=== PATIENT | female | born 1950 | race Caucasian/White ===

== ENCOUNTER 2019-02-17 22:32 | Observation (INO) | payer MEDICARE, OTHER ==
[2019-02-17 22:59] LABS: BASOPHIL % 0.5 % (0.0-0.4); Basophil (Absolute #) 0.06 (0-0.4); Eosinophil % 1.3 % (0.00-5.0); Eosinophil (Absolute #) 0.15 (0-0.5); Granulocyte Absolute (ANC) 6.13 (1.4-6.9); Granulocytes % 54.9 % (36.0-66.0); Hematocrit 37.7 % (35-47); Hemoglobin 12.1 gm/dl (12.0-16.0); Lymphocyte (Absolute #) 3.84 (1.0-4.6); Lymphocytes % 34.3 % (24.0-44.0); Mean Cell Volume 95.4 fl (78-100); Mean Corpuscular Hemoglobin 30.6 pg (26-32); Mean Corpuscular Hgb Concent. 32.1 g/dl (32-36); Mean Platelet Volume 11.7 fl (6-9.5); Monocyte (Absolute #) 1.01 (0.0-1.3); Platelet Count 244 K/mm3 (150-450); Red Blood Count 3.95 M/mm3 (4.1-5.4); Red Cell Distribution Width 15.1 % (11.5-14.0); White Blood Count 11.2 K/mm3 (4.0-10.5)
[2019-02-17] MEDS ORDERED: Sodium Chloride 0.9% 1000 ML 1,000 ML IV SCH (23:00)
--- NOTE | 2019-02-17 23:01 | ERPHSYRPT ---
- History of Present Illness Time Seen by Provider: 02/17/19 22:45 Source: patient Physician History: PATIENT WITH A HISTORY OF RHEUMATOID ARTHRITIS ACCIDENTLY INGESTED 10 TABLETS OF MORPHINE IR 15MG AT 2130 INSTEAD OF METHOTREXATE. SHE INDUCED EMESIS X 5 EPISODES. DENIES ABDOMINAL PAIN, CHEST PAIN OR DIFFICULTY BREATHING. Timing/Duration: today Modifying Factors: Improves With: nothing Associated Symptoms: denies symptoms (OTHER THAN NAUSEA) Allergies/Adverse Reactions: codeine Allergy (Verified 02/17/19 22:57) hydroxychloroquine [From Plaquenil] Allergy (Verified 02/17/19 23:00) morphine Allergy (Verified 02/17/19 22:57) Home Medications: Abatacept/Maltose 250 MG [Orencia 250 MG Vial] 250 mg IV UD 02/17/19 [ History] Atorvastatin Calcium [Lipitor] 40 mg PO HS 02/17/19 [History] Baclofen 10 mg PO HS 02/17/19 [History] Ergocalciferol (Vitamin D2) [Vitamin D2] 1.25 mg PO WEEKLY 02/17/19 [History] Folic Acid 1 mg PO DAILY 02/17/19 [History] Lisinopril/Hydrochlorothiazide [Lisinopril-Hctz 10-12.5 mg Tab] 1 each PO BID [History] Metformin HCl 500 mg [Glucophage 500 MG] 500 mg PO DAILY 02/17/19 [History ] Methotrexate Sodium 2.5 mg [Trexall 2.5 mg] 2.5 mg PO WEEKLY 02/17/19 [ History] Sulfasalazine 500 mg [Azulfidine 500 mg] 500 mg PO BID 02/17/19 [History] - Review of Systems Constitutional: No Fever, No Chills Eyes: No Symptoms Ears, Nose, & Throat: No Symptoms Respiratory: No Cough, No Dyspnea Cardiac: No Chest Pain, No Edema, No Syncope Abdominal/Gastrointestinal: No Symptoms, No Abdominal Pain, No Nausea, No Vomiting, No Diarrhea Genitourinary Symptoms: No Symptoms, No Dysuria Musculoskeletal: No Symptoms, No Back Pain, No Neck Pain Skin: No Rash Neurological: No Dizziness, No Focal Weakness, No Sensory Changes Psychological: No Symptoms Endocrine: No Symptoms All Other Systems: Reviewed and Negative - Past Medical History Neurological History: No Pertinent History Cardiac History: High Cholesterol, Hypertension Respiratory History: No Pertinent History Endocrine Medical History: Diabetes Type II Musculoskeletal History: Fibromyalgia, Rheumatoid Arthritis - Nursing Vital Signs Nursing Vital Signs: Initial Vital Signs Temperature 97.5 F 02/17/19 22:47 Pulse Rate 95 H 02/17/19 22:47 Respiratory Rate 20 02/17/19 22:47 Blood Pressure 125/63 02/17/19 22:47 O2 Sat by Pulse Oximetry 88 L 02/17/19 22:47 Pain Scale Pain Intensity 10 - Physical Exam General Appearance: no apparent distress, alert Eye Exam: PERRL/EOMI, eyes nml inspection Ears, Nose, Throat Exam: normal ENT inspection, TMs normal, pharynx normal, moist mucous membranes Neck Exam: normal inspection, non-tender, supple, full range of motion Respiratory Exam: normal breath sounds, lungs clear, No respiratory distress Cardiovascular Exam: regular rate/rhythm, normal heart sounds, normal peripheral pulses Gastrointestinal/Abdomen Exam: soft, normal bowel sounds, No tenderness, No mass Back Exam: normal inspection, normal range of motion, No CVA tenderness, No vertebral tenderness Extremity Exam: normal inspection, normal range of motion, pelvis stable Neurologic Exam: alert, oriented x 3, cooperative, normal mood/affect, nml cerebellar function, nml station & gait, sensation nml, No motor deficits Skin Exam: normal color, warm, dry, No rash Lymphatic Exam: No adenopathy SpO2 Interpretation: hypoxic SpO2: 88 O2 Delivery: Room Air Ordered Tests: Active Orders 24 hr Category Date Time Status [place] [employer] Operator STAT Care 02/17/19 22:52 Active EKG-ER Only STAT Care 02/18/19 00:22 Active Oxygen-ED Only Nasal Cannula 2 lpm Care 02/17/19 22:50 Active ACETAMINOPHEN Stat Lab 02/17/19 22:55 Completed ARTERIAL BLOOD GASES Stat Lab 02/18/19 00:30 Completed BMP Stat Lab 02/18/19 00:00 Completed CBC W DIFF Stat Lab 02/17/19 22:55 Completed Hepatic Function Panel Stat Lab 02/17/19 22:55 Completed MAGNESIUM Stat Lab 02/18/19 00:00 Completed SALICYLATE Stat Lab 02/17/19 22:55 Completed Urine Triage Profile Stat Lab 02/17/19 23:42 Completed Medication Summary Generic Name Dose Route Start Last Admin Trade Name Freq PRN Reason Stop Dose Admin Sodium Chloride 1,000 mls @ 50 mls/hr 02/17/19 23:00 02/17/19 23:10 Sodium Chloride 0.9% 1000 Ml IV 03/19/19 22:59 50 mls/hr .Q20H AIDA Administration Lab/Rad Data: Laboratory Result Diagrams 02/17/19 22:55 02/18/19 00:00 Laboratory Results 02/18/19 02/18/19 02/18/19 Range/Units 00:30 00:00 00:00 WBC (4.0-10.5) K/mm3 RBC (4.1-5.4) M/mm3 Hgb (12.0-16.0) gm/dl Hct (35-47) % MCV (78-100) fl MCH (26-32) pg MCHC (32-36) g/dl RDW (11.5-14.0) % Plt Count (150-450) K/mm3 MPV (6-9.5) fl Gran % (36.0-66.0) % Eos # (Auto) (0-0.5) Absolute Lymphs (auto) (1.0-4.6) Absolute Monos (auto) (0.0-1.3) Lymphocytes % (24.0-44.0) % Monocytes % (0.0-12.0) % Eosinophils % (0.00-5.0) % Basophils % (0.0-0.4) % Absolute Granulocytes (1.4-6.9) Basophils # (0-0.4) Puncture Site LEFT RADIAL pCO2 44 (35-45) mmHg pO2 83 (75-100) mmHg Base Excess -0.1 (-2.0-2.0) O2 Saturation 94.5 (94-100) g/dF ABG pH 7.37 (7.35-7.45) ABG HCO3 25.4 (22-28) ABG O2 Sat (Measured) 96.6 (95-100) % Cameron Test YES A-a Gradient 47 a/A Ratio 0.64 Hemoglobin 11.0 Carboxyhemoglobin 1.8 (0.0-6.9) % THgb Methemoglobin 0.5 L (1.4-1.5) % Temperature 37.0 C POC O2 Flow Rate 26 % Sodium 139 (137-145) mmol/L Potassium 3.3 L 3.7 (3.5-5.1) mmol/L Chloride 105 (98-107) mmol/L Carbon Dioxide 24 (22-30) mmol/L Anion Gap 13.9 (5-15) MEQ/L BUN 24 H (7-17) mg/dL Creatinine 0.62 (0.52-1.04) mg/dL Estimated GFR > 60.0 ML/MIN Glucose 153 H (74-106) mg/dL Calcium 10.0 (8.4-10.2) mg/dL Magnesium 1.7 (1.6-2.3) mg/dL Total Bilirubin (0.2-1.3) mg/dL Direct Bilirubin (0.0-0.4) mg/dL AST (14-36) U/L ALT (0-35) U/L Alkaline Phosphatase (38-126) U/L Serum Total Protein (6.3-8.2) g/dL Albumin (3.5-5.0) g/dL Salicylates (2-20) mg/dL Urine Opiates Level (NEGATIVE) Ur Methadone (NEGATIVE) Acetaminophen (10-30) ug/ml Urine Barbiturates (NEGATIVE) Ur Phencyclidine (PCP) (NEGATIVE) Urine Amphetamine (NEGATIVE) U Benzodiazepine Level (NEGATIVE) Urine Cocaine (NEGATIVE) Urine Marijuana (THC) (NEGATIVE) 02/17/19 02/17/19 02/17/19 Range/Units 23:42 22:55 22:55 WBC 11.2 H (4.0-10.5) K/mm3 RBC 3.95 L (4.1-5.4) M/mm3 Hgb 12.1 (12.0-16.0) gm/dl Hct 37.7 (35-47) % MCV 95.4 (78-100) fl MCH 30.6 (26-32) pg MCHC 32.1 (32-36) g/dl RDW 15.1 H (11.5-14.0) % Plt Count 244 (150-450) K/mm3 MPV 11.7 H (6-9.5) fl Gran % 54.9 (36.0-66.0) % Eos # (Auto) 0.15 (0-0.5) Absolute Lymphs (auto) 3.84 (1.0-4.6) Absolute Monos (auto) 1.01 (0.0-1.3) Lymphocytes % 34.3 (24.0-44.0) % Monocytes % 9.0 (0.0-12.0) % Eosinophils % 1.3 (0.00-5.0) % Basophils % 0.5 (0.0-0.4) % Absolute Granulocytes 6.13 (1.4-6.9) Basophils # 0.06 (0-0.4) Puncture Site pCO2 (35-45) mmHg pO2 (75-100) mmHg Base Excess (-2.0-2.0) O2 Saturation (94-100) g/dF ABG pH (7.35-7.45) ABG HCO3 (22-28) ABG O2 Sat (Measured) (95-100) % Cameron Test A-a Gradient a/A Ratio Hemoglobin Carboxyhemoglobin (0.0-6.9) % THgb Methemoglobin (1.4-1.5) % Temperature C POC O2 Flow Rate % Sodium (137-145) mmol/L Potassium (3.5-5.1) mmol/L Chloride (98-107) mmol/L Carbon Dioxide (22-30) mmol/L Anion Gap (5-15) MEQ/L BUN (7-17) mg/dL Creatinine (0.52-1.04) mg/dL Estimated GFR ML/MIN Glucose (74-106) mg/dL Calcium (8.4-10.2) mg/dL Magnesium (1.6-2.3) mg/dL Total Bilirubin 0.30 (0.2-1.3) mg/dL Direct Bilirubin 0 (0.0-0.4) mg/dL AST 45 H (14-36) U/L ALT 21 (0-35) U/L Alkaline Phosphatase 71 (38-126) U/L Serum Total Protein 6.9 (6.3-8.2) g/dL Albumin 4.1 (3.5-5.0) g/dL Salicylates < 1.0 L (2-20) mg/dL Urine Opiates Level POSITIVE (NEGATIVE) Ur Methadone NEGATIVE (NEGATIVE) Acetaminophen < 10 L (10-30) ug/ml Urine Barbiturates NEGATIVE (NEGATIVE) Ur Phencyclidine (PCP) NEGATIVE (NEGATIVE) Urine Amphetamine NEGATIVE (NEGATIVE) U Benzodiazepine Level NEGATIVE (NEGATIVE) Urine Cocaine NEGATIVE (NEGATIVE) Urine Marijuana (THC) NEGATIVE (NEGATIVE) - Progress Progress Note: 02/18/19 01:[address] ONTO OXYGEN 2 L PULSE OX 97% 02/18/19 01:40, PATIENT HAS REMAINED ALERT EASILY AROUSABLE THOUGHOUT ER VISIT Discussed with : Kareem (DISCUSSED WITH DR SOTOMAYOR FOR OBSERVATION AT 0125) - Departure Departure Disposition: Observation Clinical Impression: OPIATE INGESTION, ACCIDENTAL OVERDOSE Condition: Stable Critical Care Time: No Referrals: KATI NAJERA MD [Primary Care Provider] -
[2019-02-17 23:03] LABS: ALBUMIN 4.1 g/dL (3.5-5.0); ALKALINE PHOSPHATASE 71 U/L (38-126); SGOT/AST 45 U/L (14-36); SGPT/ALT 21 U/L (0-35); Total Protein 6.9 g/dL (6.3-8.2)
[2019-02-17 23:04] LABS: ACETAMINOPHEN < 10 ug/ml (10-30); Direct Bilirubin 0 mg/dL (0.0-0.4); SALICYLATE < 1.0 mg/dL (2-20)
[2019-02-18 00:02] LABS: Amphetamine,Urine NEGATIVE (NEGATIVE); Barbiturate,Urine NEGATIVE (NEGATIVE); Benzodiazepine,Urine NEGATIVE (NEGATIVE); Cocaine,Urine NEGATIVE (NEGATIVE); Methadone,Urine NEGATIVE (NEGATIVE); Opiate,Urine POSITIVE (NEGATIVE); PCP,Urine NEGATIVE (NEGATIVE); THC,Urine NEGATIVE (NEGATIVE)
[2019-02-18 00:35] LABS: ANION GAP 13.9 MEQ/L (5-15); BLOOD UREA NITROGEN 24 mg/dL (7-17); CHLORIDE 105 mmol/L (98-107); Carbon Dioxide 24 mmol/L (22-30); Creatinine 1 0.62 mg/dL (0.52-1.04); Glucose 153 mg/dL (74-106); Potassium 3.7 mmol/L (3.5-5.1); SODIUM 139 mmol/L (137-145)
[2019-02-18 00:39] LABS: A-aADO2 47; ABG POTASSIUM 3.3 (3.5-5.1); ABG SITE LEFT RADIAL; ALLEN TEST OK? YES; ARTERIAL BLD GAS O2 SATURATION 96.6 % (95-100); ARTERIAL BLOOD GAS BASE EXCESS -0.1 (-2.0-2.0); ARTERIAL BLOOD GAS FIO2 26 %; ARTERIAL BLOOD GAS PCO2 44 mmHg (35-45); ARTERIAL BLOOD GAS PO2 83 mmHg (75-100); ARTERIAL BLOOD GAS pH 7.37 (7.35-7.45); CARBOXYHEMOGLOBIN 1.8 % THgb (0.0-6.9); HCO3- 25.4 (22-28); HGB O2 SAT 94.5 g/dF (94-100); Methhemoglobin 0.5 % (1.4-1.5); paO2 pAO1 0.64
[2019-02-18] MEDS ORDERED: Zofran 4 MG/2 ML VIAL IV PRN (01:41)
[2019-02-18] MEDS ORDERED: NARCAN 2 MG/2 ML IV PRN (01:45)
[2019-02-18] MEDS ORDERED: NovoLOG Insulin SQ PRN (03:26)
[2019-02-18] MEDS ORDERED: Glucophage 500 MG PO SCH (08:00)
[2019-02-18] MEDS ORDERED: TYLENOL 325 MG PO PRN (08:55)
[2019-02-18] MEDS ORDERED: Zestril 10 MG PO SCH (10:00)
[2019-02-18] MEDS ORDERED: FOLATE 1 MG PO SCH (10:00)
[2019-02-18 11:17] VITALS: BP 112/59; PULSE 56; O2SAT 98
--- NOTE | 2019-02-18 13:19 | PCM.SSS ---
History of Present Illness - Chief Complaint Chief Complaint: Accidental Overdose of morphine History of Present Illness: is a 68 year old female came to ER with c/o nausea, vomiting and abdominal pain. She took 10 tablets of 10 mg morphine IR instead of methotraxate she takes for her rheumatoid arthritis. - Review of Systems Constitutional: No Fever, No Chills Eyes: No Symptoms Ears, Nose, & Throat: No Symptoms Respiratory: No Cough, No Short Of Breath Cardiac: No Chest Pain, No Edema, No Syncope Abdominal/Gastrointestinal: No Abdominal Pain, No Nausea, No Vomiting, No Diarrhea Genitourinary Symptoms: No Dysuria Musculoskeletal: No Back Pain, No Neck Pain Skin: No Rash Neurological: No Dizziness, No Focal Weakness, No Sensory Changes Psychological: No Symptoms Endocrine: No Symptoms Hematologic/Lymphatic: No Symptoms Immunological/Allergic: No Symptoms Medications & Allergies Home Medications: Home Medication List Abatacept/Maltose 250 MG [Orencia 250 MG Vial] 250 mg IV UD 02/17/19 [ History Confirmed 02/17/19] Atorvastatin Calcium [Lipitor] 40 mg PO HS 02/17/19 [History Confirmed 02/17/19] Baclofen 10 mg PO HS 02/17/19 [History Confirmed 02/17/19] Ergocalciferol (Vitamin D2) [Vitamin D2] 1.25 mg PO WEEKLY 02/17/19 [History Confirmed 02/17/19] Folic Acid 2 mg PO DAILY 02/17/19 [History Confirmed 02/18/19] Metformin HCl 500 mg [Glucophage 500 MG] 500 mg PO DAILY 02/17/19 [ History Confirmed 02/17/19] Methotrexate Sodium 2.5 mg [Trexall 2.5 mg] 10 tablet PO WEEKLY 02/17/19 [ History Confirmed 02/18/19] Sulfasalazine 500 mg [Azulfidine 500 mg] 1,500 mg PO BID 02/17/19 [ History Confirmed 02/18/19] Lisinopril/Hydrochlorothiazide [Lisinopril-Hctz 20-12.5 mg Tab] 0.5 tablet PO BID 02/18/19 [History Confirmed 02/18/19] Ondansetron ODT 4 MG [Zofran Odt 4 mg] 4 mg PO Q6H PRN PRN #10 tab.rapdis 02/18/19 [Rx] Allergies/Adverse Reactions: Allergies Allergy/AdvReac Type Severity Reaction Status Date / Time codeine Allergy Verified 02/17/19 22:57 hydroxychloroquine Allergy Verified 02/17/19 23:00 [From Plaquenil] morphine Allergy Verified 02/17/19 22:57 - Past Medical History Past Medical History: Yes Neurological History: No Pertinent History ENT History: No Pertinent History Cardiac History: High Cholesterol, Hypertension Respiratory History: No Pertinent History Endocrine Medical History: Diabetes Type II Musculoskelatal History: Fibromyalgia, Osteoarthritis, Rheumatoid Arthritis GI Medical History: Diverticulitis, Diverticulosis History: No Pertinent History Pyscho-Social History: No Pertinent History Reproductive Disorders: No Pertinent History - Female History Hx Last Menstrual Period: Hysterectomy Are you now?: No - Past Surgical History Past Surgical History: Yes Neuro Surgical History: No Pertinent History Cardiac History: No Pertinent History Respiratory Surgery: No Pertinent History GI Surgical History: Cholecystectomy Genitourinary Surgical Hx: No Pertinent History Musculskeletal Surgical Hx: No Pertinent History Female Surgical History: Hysterectomy - Social History Smoking Status: Never smoker Exposure to second hand smoke: No Alcohol: None Drug Use: none - Physical Exam Vital Signs: Vital Signs - 24 hr Temp Pulse Resp BP Pulse Ox 02/18/19 11:16 98.4 F 56 L 15 112/59 98 02/18/19 08:00 64 02/18/19 07:26 98.0 F 64 18 111/53 94 L 02/18/19 04:00 97.8 F 66 15 96/44 92 L 02/18/19 02:22 98.2 F 677 H 20 123/57 98 02/18/19 01:41 88 L 02/18/19 00:40 97.9 F 67 14 114/62 99 02/17/19 23:50 70 114/62 99 02/17/19 23:36 67 17 133/80 98 02/17/19 22:47 97.5 F 95 H 20 125/63 88 L Oxygen-Last 24 hours O2 Percentage 2 Liters = 28% O2 Percentage 2 Liters = 28% O2 Percentage 2 Liters = 28% O2 Percentage 2 Liters = 28% O2 Percentage 2 Liters = 28% General Appearance: no apparent distress, alert Neurologic Exam: alert, oriented x 3, cooperative, normal mood/affect, nml cerebellar function, nml station & gait, sensation nml, No motor deficits Eye Exam: PERRL/EOMI, eyes nml inspection Ears, Nose, Throat Exam: normal ENT inspection, TMs normal, pharynx normal, moist mucous membranes Neck Exam: normal inspection, non-tender, supple, full range of motion Respiratory Exam: normal breath sounds, lungs clear, No respiratory distress Cardiovascular Exam: regular rate/rhythm, normal heart sounds, normal peripheral pulses Gastrointestinal/Abdomen Exam: soft, normal bowel sounds, No tenderness, No mass Back Exam: normal inspection, normal range of motion, No CVA tenderness, No vertebral tenderness Extremity Exam: normal inspection, normal range of motion, pelvis stable Skin Exam: normal color, warm, dry, No rash Lymphatic Exam: No adenopathy Results - Labs Lab/Micro Results: Accuchecks Date 02/18/19 Date 02/18/19 Time 11:30 Time 07:30 Accucheck Value: 138 Accucheck Value: 130 Lab Results-Last 24 Hours 02/17/19 02/17/19 02/17/19 Range/Units 22:55 22:55 23:42 WBC 11.2 H (4.0-10.5) K/mm3 RBC 3.95 L (4.1-5.4) M/mm3 Hgb 12.1 (12.0-16.0) gm/dl Hct 37.7 (35-47) % MCV 95.4 (78-100) fl MCH 30.6 (26-32) pg MCHC 32.1 (32-36) g/dl RDW 15.1 H (11.5-14.0) % Plt Count 244 (150-450) K/mm3 MPV 11.7 H (6-9.5) fl Gran % 54.9 (36.0-66.0) % Eos # (Auto) 0.15 (0-0.5) Absolute Lymphs (auto) 3.84 (1.0-4.6) Absolute Monos (auto) 1.01 (0.0-1.3) Lymphocytes % 34.3 (24.0-44.0) % Monocytes % 9.0 (0.0-12.0) % Eosinophils % 1.3 (0.00-5.0) % Basophils % 0.5 (0.0-0.4) % Absolute Granulocytes 6.13 (1.4-6.9) Basophils # 0.06 (0-0.4) Puncture Site pCO2 (35-45) mmHg pO2 (75-100) mmHg Base Excess (-2.0-2.0) O2 Saturation (94-100) g/dF ABG pH (7.35-7.45) ABG HCO3 (22-28) ABG O2 Sat (Measured) (95-100) % Cameron Test A-a Gradient a/A Ratio Hemoglobin Carboxyhemoglobin (0.0-6.9) % THgb Methemoglobin (1.4-1.5) % Temperature C POC O2 Flow Rate % Sodium (137-145) mmol/L Potassium (3.5-5.1) mmol/L Chloride (98-107) mmol/L Carbon Dioxide (22-30) mmol/L Anion Gap (5-15) MEQ/L BUN (7-17) mg/dL Creatinine (0.52-1.04) mg/dL Estimated GFR ML/MIN Glucose (74-106) mg/dL Hemoglobin A1c (4.5-6.0) % Calcium (8.4-10.2) mg/dL Magnesium (1.6-2.3) mg/dL Total Bilirubin 0.30 (0.2-1.3) mg/dL Direct Bilirubin 0 (0.0-0.4) mg/dL AST 45 H (14-36) U/L ALT 21 (0-35) U/L Alkaline Phosphatase 71 (38-126) U/L Serum Total Protein 6.9 (6.3-8.2) g/dL Albumin 4.1 (3.5-5.0) g/dL Salicylates < 1.0 L (2-20) mg/dL Urine Opiates Level POSITIVE (NEGATIVE) Ur Methadone NEGATIVE (NEGATIVE) Acetaminophen < 10 L (10-30) ug/ml Urine Barbiturates NEGATIVE (NEGATIVE) Ur Phencyclidine (PCP) NEGATIVE (NEGATIVE) Urine Amphetamine NEGATIVE (NEGATIVE) U Benzodiazepine Level NEGATIVE (NEGATIVE) Urine Cocaine NEGATIVE (NEGATIVE) Urine Marijuana (THC) NEGATIVE (NEGATIVE) 02/18/19 02/18/19 02/18/19 Range/Units 00:00 00:00 00:30 WBC (4.0-10.5) K/mm3 RBC (4.1-5.4) M/mm3 Hgb (12.0-16.0) gm/dl Hct (35-47) % MCV (78-100) fl MCH (26-32) pg MCHC (32-36) g/dl RDW (11.5-14.0) % Plt Count (150-450) K/mm3 MPV (6-9.5) fl Gran % (36.0-66.0) % Eos # (Auto) (0-0.5) Absolute Lymphs (auto) (1.0-4.6) Absolute Monos (auto) (0.0-1.3) Lymphocytes % (24.0-44.0) % Monocytes % (0.0-12.0) % Eosinophils % (0.00-5.0) % Basophils % (0.0-0.4) % Absolute Granulocytes (1.4-6.9) Basophils # (0-0.4) Puncture Site LEFT RADIAL pCO2 44 (35-45) mmHg pO2 83 (75-100) mmHg Base Excess -0.1 (-2.0-2.0) O2 Saturation 94.5 (94-100) g/dF ABG pH 7.37 (7.35-7.45) ABG HCO3 25.4 (22-28) ABG O2 Sat (Measured) 96.6 (95-100) % Cameron Test YES A-a Gradient 47 a/A Ratio 0.64 Hemoglobin 11.0 Carboxyhemoglobin 1.8 (0.0-6.9) % THgb Methemoglobin 0.5 L (1.4-1.5) % Temperature 37.0 C POC O2 Flow Rate 26 % Sodium 139 (137-145) mmol/L Potassium 3.7 3.3 L (3.5-5.1) mmol/L Chloride 105 (98-107) mmol/L Carbon Dioxide 24 (22-30) mmol/L Anion Gap 13.9 (5-15) MEQ/L BUN 24 H (7-17) mg/dL Creatinine 0.62 (0.52-1.04) mg/dL Estimated GFR > 60.0 ML/MIN Glucose 153 H (74-106) mg/dL Hemoglobin A1c (4.5-6.0) % Calcium 10.0 (8.4-10.2) mg/dL Magnesium 1.7 (1.6-2.3) mg/dL Total Bilirubin (0.2-1.3) mg/dL Direct Bilirubin (0.0-0.4) mg/dL AST (14-36) U/L ALT (0-35) U/L Alkaline Phosphatase (38-126) U/L Serum Total Protein (6.3-8.2) g/dL Albumin (3.5-5.0) g/dL Salicylates (2-20) mg/dL Urine Opiates Level (NEGATIVE) Ur Methadone (NEGATIVE) Acetaminophen (10-30) ug/ml Urine Barbiturates (NEGATIVE) Ur Phencyclidine (PCP) (NEGATIVE) Urine Amphetamine (NEGATIVE) U Benzodiazepine Level (NEGATIVE) Urine Cocaine (NEGATIVE) Urine Marijuana (THC) (NEGATIVE) 02/18/19 Range/Units 08:00 WBC (4.0-10.5) K/mm3 RBC (4.1-5.4) M/mm3 Hgb (12.0-16.0) gm/dl Hct (35-47) % MCV (78-100) fl MCH (26-32) pg MCHC (32-36) g/dl RDW (11.5-14.0) % Plt Count (150-450) K/mm3 MPV (6-9.5) fl Gran % (36.0-66.0) % Eos # (Auto) (0-0.5) Absolute Lymphs (auto) (1.0-4.6) Absolute Monos (auto) (0.0-1.3) Lymphocytes % (24.0-44.0) % Monocytes % (0.0-12.0) % Eosinophils % (0.00-5.0) % Basophils % (0.0-0.4) % Absolute Granulocytes (1.4-6.9) Basophils # (0-0.4) Puncture Site pCO2 (35-45) mmHg pO2 (75-100) mmHg Base Excess (-2.0-2.0) O2 Saturation (94-100) g/dF ABG pH (7.35-7.45) ABG HCO3 (22-28) ABG O2 Sat (Measured) (95-100) % Cameron Test A-a Gradient a/A Ratio Hemoglobin Carboxyhemoglobin (0.0-6.9) % THgb Methemoglobin (1.4-1.5) % Temperature C POC O2 Flow Rate % Sodium (137-145) mmol/L Potassium (3.5-5.1) mmol/L Chloride (98-107) mmol/L Carbon Dioxide (22-30) mmol/L Anion Gap (5-15) MEQ/L BUN (7-17) mg/dL Creatinine (0.52-1.04) mg/dL Estimated GFR ML/MIN Glucose (74-106) mg/dL Hemoglobin A1c 5.21 (4.5-6.0) % Calcium (8.4-10.2) mg/dL Magnesium (1.6-2.3) mg/dL Total Bilirubin (0.2-1.3) mg/dL Direct Bilirubin (0.0-0.4) mg/dL AST (14-36) U/L ALT (0-35) U/L Alkaline Phosphatase (38-126) U/L Serum Total Protein (6.3-8.2) g/dL Albumin (3.5-5.0) g/dL Salicylates (2-20) mg/dL Urine Opiates Level (NEGATIVE) Ur Methadone (NEGATIVE) Acetaminophen (10-30) ug/ml Urine Barbiturates (NEGATIVE) Ur Phencyclidine (PCP) (NEGATIVE) Urine Amphetamine (NEGATIVE) U Benzodiazepine Level (NEGATIVE) Urine Cocaine (NEGATIVE) Urine Marijuana (THC) (NEGATIVE) Accuchecks Date 02/18/19 Date 02/18/19 Time 11:30 Time 07:30 Accucheck Value: 138 Accucheck Value: 130 Assessment/Plan (1) Accidental overdose Current Visit: Yes Status: Acute Assessment & Plan: doing ok, will discharge her home Code(s): T50.901A - POISONING BY UNSP DRUG/MEDS/BIOL SUBST, ACCIDENTAL, INIT Hospital Summary - Hospital Course Hospital Course: Chief Complaint Diagnosis Accidental Overdose of morphine Allergies Allergy/AdvReac Type Severity Reaction Status Date / Time codeine Allergy Verified 02/17/19 22:57 hydroxychloroquine Allergy Verified 02/17/19 23:00 [From Plaquenil] morphine Allergy Verified 02/17/19 22:57 Vital Signs (Last 24 hours) Temp Pulse Resp BP Pulse Ox 02/18/19 11:16 98.4 F 56 L 15 112/59 98 02/18/19 08:00 64 02/18/19 07:26 98.0 F 64 18 111/53 94 L 02/18/19 04:00 97.8 F 66 15 96/44 92 L 02/18/19 02:22 98.2 F 677 H 20 123/57 98 02/18/19 01:41 88 L 02/18/19 00:40 97.9 F 67 14 114/62 99 02/17/19 23:50 70 114/62 99 02/17/19 23:36 67 17 133/80 98 02/17/19 22:47 97.5 F 95 H 20 125/63 88 L Home Medications Medication Instructions Recorded Confirmed Last Taken Type Abatacept/Maltose 250 MG 250 mg IV UD 02/17/19 02/17/19 Unknown History [Orencia 250 MG Vial] Atorvastatin Calcium [Lipitor] 40 mg PO HS 02/17/19 02/17/19 02/17/19 History Baclofen 10 mg PO HS 02/17/19 02/17/19 02/17/19 History Ergocalciferol (Vitamin D2) 1.25 mg PO WEEKLY 02/17/19 02/17/19 Unknown History [Vitamin D2] Folic Acid 2 mg PO DAILY 02/17/19 02/18/19 02/17/19 History Metformin HCl 500 mg 500 mg PO DAILY 02/17/19 02/17/19 02/17/19 History [Glucophage 500 MG] Methotrexate Sodium 2.5 mg 10 tablet PO WEEKLY 02/17/19 02/18/19 02/10/19 History [Trexall 2.5 mg] Sulfasalazine 500 mg 1,500 mg PO BID 02/17/19 02/18/19 02/17/19 History [Azulfidine 500 mg] Lisinopril/Hydrochlorothiazide 0.5 tablet PO BID 02/18/19 02/18/19 02/17/19 History [Lisinopril-Hctz 20-12.5 mg Tab] Current Medications Generic Name Dose Route Start Last Admin Trade Name Freq PRN Reason Stop Dose Admin Acetaminophen 650 mg 02/18/19 08:55 02/18/19 09:02 Tylenol 325 Mg PO 03/20/19 08:54 650 mg Q4H PRN PRN Administration PAIN AND/OR FEVER Folic Acid 1 mg 02/18/19 10:00 02/18/19 10:49 Folate 1 Mg PO 03/20/19 09:59 Not Given DAILY AIDA Sodium Chloride 1,000 mls @ 50 mls/hr 02/17/19 23:00 02/17/19 23:10 Sodium Chloride 0.9% 1000 Ml IV 03/19/19 22:59 50 mls/hr .Q20H AIDA Administration Insulin Aspart 0 unit 02/18/19 03:26 Novolog Insulin SQ 03/20/19 03:25 UD PRN HYPERGLYCEMIA Lisinopril 10 mg 02/18/19 10:00 02/18/19 10:49 Zestril 10 Mg PO 03/20/19 09:59 Not Given BID AIDA Metformin HCl 500 mg 02/18/19 08:00 02/18/19 08:48 Glucophage 500 Mg PO 03/20/19 07:59 500 mg BREAKFAST AIDA Administration Naloxone HCl 2 mg 02/18/19 01:45 Narcan 2 Mg/2 Ml IV 03/20/19 01:44 Q4HPRN PRN LETHARGY Ondansetron HCl 4 mg 02/18/19 01:41 02/18/19 08:47 Zofran 4 Mg/2 Ml Vial IV 03/20/19 01:40 4 mg Q6H PRN PRN Administration NAUSEA/VOMITING Intake & Output (Last 24 hours) 02/16/19 02/17/19 02/18/19 02/19/19 11:59 11:59 11:59 11:59 Intake Total 125 Output Total 300 Balance -175 Weight 94 kg Laboratory Results (Last 24 hours) 02/18/19 02/18/19 02/18/19 08:00 00:30 00:00 WBC RBC Hgb Hct MCV MCH MCHC RDW Plt Count MPV Gran % Eos # (Auto) Absolute Lymphs (auto) Absolute Monos (auto) Lymphocytes % Monocytes % Eosinophils % Basophils % Absolute Granulocytes Basophils # Puncture Site LEFT RADIAL pCO2 44 pO2 83 Base Excess -0.1 O2 Saturation 94.5 ABG pH 7.37 ABG HCO3 25.4 ABG O2 Sat (Measured) 96.6 Cameron Test YES A-a Gradient 47 a/A Ratio 0.64 Hemoglobin 11.0 Carboxyhemoglobin 1.8 Methemoglobin 0.5 L Temperature 37.0 POC O2 Flow Rate 26 Sodium Potassium 3.3 L Chloride Carbon Dioxide Anion Gap BUN Creatinine Estimated GFR Glucose Hemoglobin A1c 5.21 Calcium Magnesium 1.7 Total Bilirubin Direct Bilirubin AST ALT Alkaline Phosphatase Serum Total Protein Albumin Salicylates Urine Opiates Level Ur Methadone Acetaminophen Urine Barbiturates Ur Phencyclidine (PCP) Urine Amphetamine U Benzodiazepine Level Urine Cocaine Urine Marijuana (THC) 02/18/19 02/17/19 02/17/19 00:00 23:42 22:55 WBC RBC Hgb Hct MCV MCH MCHC RDW Plt Count MPV Gran % Eos # (Auto) Absolute Lymphs (auto) Absolute Monos (auto) Lymphocytes % Monocytes % Eosinophils % Basophils % Absolute Granulocytes Basophils # Puncture Site pCO2 pO2 Base Excess O2 Saturation ABG pH ABG HCO3 ABG O2 Sat (Measured) Cameron Test A-a Gradient a/A Ratio Hemoglobin Carboxyhemoglobin Methemoglobin Temperature POC O2 Flow Rate Sodium 139 Potassium 3.7 Chloride 105 Carbon Dioxide 24 Anion Gap 13.9 BUN 24 H Creatinine 0.62 Estimated GFR > 60.0 Glucose 153 H Hemoglobin A1c Calcium 10.0 Magnesium Total Bilirubin 0.30 Direct Bilirubin 0 AST 45 H ALT 21 Alkaline Phosphatase 71 Serum Total Protein 6.9 Albumin 4.1 Salicylates < 1.0 L Urine Opiates Level POSITIVE Ur Methadone NEGATIVE Acetaminophen < 10 L Urine Barbiturates NEGATIVE Ur Phencyclidine (PCP) NEGATIVE Urine Amphetamine NEGATIVE U Benzodiazepine Level NEGATIVE Urine Cocaine NEGATIVE Urine Marijuana (THC) NEGATIVE 02/17/19 22:55 WBC 11.2 H RBC 3.95 L Hgb 12.1 Hct 37.7 MCV 95.4 MCH 30.6 MCHC 32.1 RDW 15.1 H Plt Count 244 MPV 11.7 H Gran % 54.9 Eos # (Auto) 0.15 Absolute Lymphs (auto) 3.84 Absolute Monos (auto) 1.01 Lymphocytes % 34.3 Monocytes % 9.0 Eosinophils % 1.3 Basophils % 0.5 Absolute Granulocytes 6.13 Basophils # 0.06 Puncture Site pCO2 pO2 Base Excess O2 Saturation ABG pH ABG HCO3 ABG O2 Sat (Measured) Cameron Test A-a Gradient a/A Ratio Hemoglobin Carboxyhemoglobin Methemoglobin Temperature POC O2 Flow Rate Sodium Potassium Chloride Carbon Dioxide Anion Gap BUN Creatinine Estimated GFR Glucose Hemoglobin A1c Calcium Magnesium Total Bilirubin Direct Bilirubin AST ALT Alkaline Phosphatase Serum Total Protein Albumin Salicylates Urine Opiates Level Ur Methadone Acetaminophen Urine Barbiturates Ur Phencyclidine (PCP) Urine Amphetamine U Benzodiazepine Level Urine Cocaine Urine Marijuana (THC) Orders (Last 24 hours) Category Date Time Status Accucheck ACHS Care 02/18/19 01:41 Active Call Admit Doctor for Orders ON ADMISSION Care 02/18/19 01:43 Active Hotel Maintenance Engineer STAT Care 02/17/19 22:52 Completed Code Status Order ROUTINE Care 02/18/19 01:42 Active EKG-ER Only STAT Care 02/18/19 00:22 Completed IV Care Q6H Care 02/18/19 01:42 Active Neuro Checks Q4H Care 02/18/19 01:41 Active Oxygen-ED Only Nasal Cannula 2 lpm Care 02/17/19 22:[address] in Observation ROUTINE Care 02/18/19 01:42 Active 1800 Calorie ADA Diet 02/18/19 Breakfast Active Nutritional Admission Screen once Diet 02/18/19 02:43 Completed ACETAMINOPHEN Stat Lab 02/17/19 22:55 Completed ARTERIAL BLOOD GASES Stat Lab 02/18/19 00:30 Completed BMP Stat Lab 02/18/19 00:00 Completed CBC W DIFF Stat Lab 02/17/19 22:55 Completed HEMOGLOBIN A1C Urgent Lab 02/18/19 08:00 Completed Hepatic Function Panel Stat Lab 02/17/19 22:55 Completed MAGNESIUM Stat Lab 02/18/19 00:00 Completed SALICYLATE Stat Lab 02/17/19 22:55 Completed Urine Triage Profile Stat Lab 02/17/19 23:42 Completed Acetaminophen 325 mg [Tylenol 325 mg] Med 02/18/19 08:55 Active 650 mg PO Q4H PRN PRN Folic Acid 1 mg [Folate 1 mg] Med 02/18/19 10:00 Active 1 mg PO DAILY Insulin Aspart [NovoLOG Insulin] Med 02/18/19 03:26 Active See Dose Instructions SQ UD PRN Lisinopril 10 mg [Zestril 10 MG] Med 02/18/19 10:00 Active 10 mg PO BID Metformin HCl 500 mg [Glucophage 500 MG] Med 02/18/19 08:00 Active 500 mg PO BREAKFAST NaCl 0.9% 1000 ml [Sodium Chloride 0.9% 1000 ML] 1,000 Med 02/17/19 23:00 Active ml IV 50 mls/hr Naloxone HCl 2Mg/2 ml [Narcan 2 mg/2 ml] Med 02/18/19 01:45 Active 2 mg IV Q4HPRN PRN Ondansetron HCl 4 mg/2 ml [Zofran 4 MG/2 ML VIAL] Med 02/18/19 01:41 Active 4 mg IV Q6H PRN PRN OT Screen per Nursing Assess ONCE OT 02/18/19 02:43 Completed PT Screen per Nursing Assess ONCE PT 02/18/19 02:43 Completed Transfer Order Routine Transfer 02/18/19 Completed Patient Care Notes (Last 24 hours) 02/18/19 09:46 Nursing Note by Abi Scott o2 86% pt had just fell asleep. Nurse walked into pt's room o2 increased to 93% Initialized on 02/18/19 09:46 - END OF NOTE 02/18/19 08:54 Nursing Note by Abi Scott Dr. called to check on his pt's report provided including nausea with breakfast. no labs needed at this time. Plan is to discharge around lunch time. Initialized on 02/18/19 08:54 - END OF NOTE 02/18/19 03:20 Nursing Note by Joy West Contacted Dr. Serna for orders for AM lab draws, patient diet, and insulin covers. stated patient shouldn't need anything redrawn for labs in the morning. Orders were received for 1800 ADA diet, accucheck AC/HS, low dose sliding scale insulin coverage. Initialized on 02/18/19 03:20 - END OF NOTE - Vitals & Intake/Output Vital Signs: Vital Signs Temperature 98.4 F 02/18/19 11:16 Pulse Rate 56 L 02/18/19 11:16 Respiratory Rate 15 02/18/19 11:16 Blood Pressure 112/59 02/18/19 11:16 O2 Sat by Pulse Oximetry 98 02/18/19 11:16 Oxygen-Last Documented O2 Percentage 2 Liters = 28% Intake & Output: Intake & Output 02/16/19 02/17/19 02/18/19 02/19/19 11:59 11:59 11:59 11:59 Intake Total 125 Output Total 300 Balance -175 Weight 94 kg - Lab Result Diagrams: 02/17/19 22:55 02/18/19 00:00 Lab Results-Last 24 Hrs: Accuchecks Date 02/18/19 Date 02/18/19 Time 11:30 Time 07:30 Accucheck Value: 138 Accucheck Value: 130 Lab Results-Last 24 Hours 02/17/19 02/17/19 02/17/19 Range/Units 22:55 22:55 23:42 WBC 11.2 H (4.0-10.5) K/mm3 RBC 3.95 L (4.1-5.4) M/mm3 Hgb 12.1 (12.0-16.0) gm/dl Hct 37.7 (35-47) % MCV 95.4 (78-100) fl MCH 30.6 (26-32) pg MCHC 32.1 (32-36) g/dl RDW 15.1 H (11.5-14.0) % Plt Count 244 (150-450) K/mm3 MPV 11.7 H (6-9.5) fl Gran % 54.9 (36.0-66.0) % Eos # (Auto) 0.15 (0-0.5) Absolute Lymphs (auto) 3.84 (1.0-4.6) Absolute Monos (auto) 1.01 (0.0-1.3) Lymphocytes % 34.3 (24.0-44.0) % Monocytes % 9.0 (0.0-12.0) % Eosinophils % 1.3 (0.00-5.0) % Basophils % 0.5 (0.0-0.4) % Absolute Granulocytes 6.13 (1.4-6.9) Basophils # 0.06 (0-0.4) Puncture Site pCO2 (35-45) mmHg pO2 (75-100) mmHg Base Excess (-2.0-2.0) O2 Saturation (94-100) g/dF ABG pH (7.35-7.45) ABG HCO3 (22-28) ABG O2 Sat (Measured) (95-100) % Cameron Test A-a Gradient a/A Ratio Hemoglobin Carboxyhemoglobin (0.0-6.9) % THgb Methemoglobin (1.4-1.5) % Temperature C POC O2 Flow Rate % Sodium (137-145) mmol/L Potassium (3.5-5.1) mmol/L Chloride (98-107) mmol/L Carbon Dioxide (22-30) mmol/L Anion Gap (5-15) MEQ/L BUN (7-17) mg/dL Creatinine (0.52-1.04) mg/dL Estimated GFR ML/MIN Glucose (74-106) mg/dL Hemoglobin A1c (4.5-6.0) % Calcium (8.4-10.2) mg/dL Magnesium (1.6-2.3) mg/dL Total Bilirubin 0.30 (0.2-1.3) mg/dL Direct Bilirubin 0 (0.0-0.4) mg/dL AST 45 H (14-36) U/L ALT 21 (0-35) U/L Alkaline Phosphatase 71 (38-126) U/L Serum Total Protein 6.9 (6.3-8.2) g/dL Albumin 4.1 (3.5-5.0) g/dL Salicylates < 1.0 L (2-20) mg/dL Urine Opiates Level POSITIVE (NEGATIVE) Ur Methadone NEGATIVE (NEGATIVE) Acetaminophen < 10 L (10-30) ug/ml Urine Barbiturates NEGATIVE (NEGATIVE) Ur Phencyclidine (PCP) NEGATIVE (NEGATIVE) Urine Amphetamine NEGATIVE (NEGATIVE) U Benzodiazepine Level NEGATIVE (NEGATIVE) Urine Cocaine NEGATIVE (NEGATIVE) Urine Marijuana (THC) NEGATIVE (NEGATIVE) 02/18/19 02/18/19 02/18/19 Range/Units 00:00 00:00 00:30 WBC (4.0-10.5) K/mm3 RBC (4.1-5.4) M/mm3 Hgb (12.0-16.0) gm/dl Hct (35-47) % MCV (78-100) fl MCH (26-32) pg MCHC (32-36) g/dl RDW (11.5-14.0) % Plt Count (150-450) K/mm3 MPV (6-9.5) fl Gran % (36.0-66.0) % Eos # (Auto) (0-0.5) Absolute Lymphs (auto) (1.0-4.6) Absolute Monos (auto) (0.0-1.3) Lymphocytes % (24.0-44.0) % Monocytes % (0.0-12.0) % Eosinophils % (0.00-5.0) % Basophils % (0.0-0.4) % Absolute Granulocytes (1.4-6.9) Basophils # (0-0.4) Puncture Site LEFT RADIAL pCO2 44 (35-45) mmHg pO2 83 (75-100) mmHg Base Excess -0.1 (-2.0-2.0) O2 Saturation 94.5 (94-100) g/dF ABG pH 7.37 (7.35-7.45) ABG HCO3 25.4 (22-28) ABG O2 Sat (Measured) 96.6 (95-100) % Cameron Test YES A-a Gradient 47 a/A Ratio 0.64 Hemoglobin 11.0 Carboxyhemoglobin 1.8 (0.0-6.9) % THgb Methemoglobin 0.5 L (1.4-1.5) % Temperature 37.0 C POC O2 Flow Rate 26 % Sodium 139 (137-145) mmol/L Potassium 3.7 3.3 L (3.5-5.1) mmol/L Chloride 105 (98-107) mmol/L Carbon Dioxide 24 (22-30) mmol/L Anion Gap 13.9 (5-15) MEQ/L BUN 24 H (7-17) mg/dL Creatinine 0.62 (0.52-1.04) mg/dL Estimated GFR > 60.0 ML/MIN Glucose 153 H (74-106) mg/dL Hemoglobin A1c (4.5-6.0) % Calcium 10.0 (8.4-10.2) mg/dL Magnesium 1.7 (1.6-2.3) mg/dL Total Bilirubin (0.2-1.3) mg/dL Direct Bilirubin (0.0-0.4) mg/dL AST (14-36) U/L ALT (0-35) U/L Alkaline Phosphatase (38-126) U/L Serum Total Protein (6.3-8.2) g/dL Albumin (3.5-5.0) g/dL Salicylates (2-20) mg/dL Urine Opiates Level (NEGATIVE) Ur Methadone (NEGATIVE) Acetaminophen (10-30) ug/ml Urine Barbiturates (NEGATIVE) Ur Phencyclidine (PCP) (NEGATIVE) Urine Amphetamine (NEGATIVE) U Benzodiazepine Level (NEGATIVE) Urine Cocaine (NEGATIVE) Urine Marijuana (THC) (NEGATIVE) 02/18/19 Range/Units 08:00 WBC (4.0-10.5) K/mm3 RBC (4.1-5.4) M/mm3 Hgb (12.0-16.0) gm/dl Hct (35-47) % MCV (78-100) fl MCH (26-32) pg MCHC (32-36) g/dl RDW (11.5-14.0) % Plt Count (150-450) K/mm3 MPV (6-9.5) fl Gran % (36.0-66.0) % Eos # (Auto) (0-0.5) Absolute Lymphs (auto) (1.0-4.6) Absolute Monos (auto) (0.0-1.3) Lymphocytes % (24.0-44.0) % Monocytes % (0.0-12.0) % Eosinophils % (0.00-5.0) % Basophils % (0.0-0.4) % Absolute Granulocytes (1.4-6.9) Basophils # (0-0.4) Puncture Site pCO2 (35-45) mmHg pO2 (75-100) mmHg Base Excess (-2.0-2.0) O2 Saturation (94-100) g/dF ABG pH (7.35-7.45) ABG HCO3 (22-28) ABG O2 Sat (Measured) (95-100) % Cameron Test A-a Gradient a/A Ratio Hemoglobin Carboxyhemoglobin (0.0-6.9) % THgb Methemoglobin (1.4-1.5) % Temperature C POC O2 Flow Rate % Sodium (137-145) mmol/L Potassium (3.5-5.1) mmol/L Chloride (98-107) mmol/L Carbon Dioxide (22-30) mmol/L Anion Gap (5-15) MEQ/L BUN (7-17) mg/dL Creatinine (0.52-1.04) mg/dL Estimated GFR ML/MIN Glucose (74-106) mg/dL Hemoglobin A1c 5.21 (4.5-6.0) % Calcium (8.4-10.2) mg/dL Magnesium (1.6-2.3) mg/dL Total Bilirubin (0.2-1.3) mg/dL Direct Bilirubin (0.0-0.4) mg/dL AST (14-36) U/L ALT (0-35) U/L Alkaline Phosphatase (38-126) U/L Serum Total Protein (6.3-8.2) g/dL Albumin (3.5-5.0) g/dL Salicylates (2-20) mg/dL Urine Opiates Level (NEGATIVE) Ur Methadone (NEGATIVE) Acetaminophen (10-30) ug/ml Urine Barbiturates (NEGATIVE) Ur Phencyclidine (PCP) (NEGATIVE) Urine Amphetamine (NEGATIVE) U Benzodiazepine Level (NEGATIVE) Urine Cocaine (NEGATIVE) Urine Marijuana (THC) (NEGATIVE) Micro Results-Entire Visit: Accuchecks Date 02/18/19 Date 02/18/19 Time 11:30 Time 07:30 Accucheck Value: 138 Accucheck Value: 130 - Procedures and Test Procedures and Tests throughout Hospitalization: Therapy Orders & Screens 02/18/19 02:43 OT Screen per Nursing Assess ONCE Comment: Protocol Order Physician Instructions: Greater than 3 points order OT Admission Screening Reason For Exam: Triggered on Admission Diagnosis: Accidental Overdose Open Wound/Cellutlitis/Pressure Ulcers: No Acute Fx/ORIF/Change in wt bearing status: No Severe MUSCULOSKELETAL pain: Yes ADL Dysfunction: Yes Acute CVA w/Hemiparesis/Hemiplegia: No Decreased Functional Mobility/Strength: No Sprain/Strain: Yes Acute Post-op Mobility Dysfunction: No Total Points: 11 PT Screen per Nursing Assess ONCE Comment: Protocol Order Physician Instructions: Greater than 3 points order PT Admission Screenin Reason For Exam: Triggered on Admission Diagnosis: Accidental Overdose Open Wound/Cellutlitis/Pressure Ulcers: No Acute Fx/ORIF/Change in wt bearing status: No Severe MUSCULOSKELETAL pain: Yes ADL Dysfunction: Yes Acute CVA w/Hemiparesis/Hemiplegia: No Decreased Functional Mobility/Strength: No Sprain/Strain: Yes Acute Post-op Mobility Dysfunction: No Total Points: 11 - Discharge Discharge Date: 02/18/19 Disposition: Home, Self-Care Condition: Stable Prescriptions: New Ondansetron ODT 4 MG [Zofran Odt 4 mg] 4 mg PO Q6H PRN PRN #10 tab.rapdis PRN Reason: Nausea Continue Metformin HCl 500 mg [Glucophage 500 MG] 500 mg PO DAILY Abatacept/Maltose 250 MG [Orencia 250 MG Vial] 250 mg IV UD Atorvastatin Calcium [Lipitor] 40 mg PO HS Sulfasalazine 500 mg [Azulfidine 500 mg] 1,500 mg PO BID Baclofen 10 mg PO HS Methotrexate Sodium 2.5 mg [Trexall 2.5 mg] 10 tablet PO WEEKLY Folic Acid 2 mg PO DAILY Ergocalciferol (Vitamin D2) [Vitamin D2] 1.25 mg PO WEEKLY Lisinopril/Hydrochlorothiazide [Lisinopril-Hctz 20-12.5 mg Tab] 0.5 tablet PO BID Instructions: Narcotic Overdose (DC) Follow up with: KATI NAJERA MD [Primary Care Provider] - 1 Week
[2019-02-18] MEDS ORDERED: TREXALL 2.5 MG PO SCH (13:30)
[2019-02-18] MEDS ORDERED: ERGOCALCIFEROL 1.25 MG PO SCH (13:30)
[2019-02-18] MEDS ORDERED: NON-FORMULARY ITEM (Atorvastatin Calcium [Lipitor] 40 MG) PO SCH (22:00)
[2019-02-18] MEDS ORDERED: hydroDIURIL 25 MG PO SCH (22:00)
[2019-02-18] MEDS ORDERED: LIORESAL 10 MG PO SCH (22:00)
[2019-02-18] MEDS ORDERED: AZULFIDINE 500 MG PO SCH (22:00)
[2019-02-19] MEDS ORDERED: FOLATE 1 MG PO SCH (10:00)
== END 2019-02-18 14:15 | disposition home or self-care (01) ==
LOC: ED 22:32 → ICU 02-18 01:45
PROVIDERS: ADMIT General Practice; ATTEND General Practice
DX: R11.2 Nausea with vomiting, unspecified (principal); T40.2X1A Poisoning by other opioids, accidental (unintentional), initial encounter; E11.9 Type 2 diabetes mellitus without complications; I10 Essential (primary) hypertension; E78.00 Pure hypercholesterolemia, unspecified
CPT/HCPCS: 36000; 36415; 36600; 80048; 80076; 80307; 82375; 82803; 82962; 83036; 83735; 85025; 93005; 93041; 93268; 96360; 96361; 99285; G0378; G0481; J2405; A9270-GY